=== PATIENT | male | born 1975 | race Two or more races ===

== ENCOUNTER 2016-07-06 12:19 | Observation (INO) | payer MEDICAID, OTHER ==
[~2016-07-06] VITALS: Ht 190.5 cm; Wt 113.4 kg
[2016-07-06] MEDS ORDERED: METF-312 PO (13:06)
[2016-07-06] MEDS ORDERED: LISI-275 PO (13:06)
[2016-07-06] MEDS ORDERED: WARF10TA20 PO (13:06)
[2016-07-06] MEDS ORDERED: CARV6.2551 PO (13:06)
[2016-07-06] MEDS ORDERED: ATOR20TA50 PO (13:06)
[2016-07-06 13:10] LABS: Basophils # (auto) 0 uL; Basophils % (auto) 0.3 % (0.0-2.0); DEFINITIVE VIEW TRANSMISSION; Eosinophils # (auto) 0.1 uL; Eosinophils % (auto) 0.8 % (0.0-7.0); Hematocrit 41.9 % (41.0-53.0); Hemoglobin 13.8 g/dL (13.5-17.5); Lymphocytes # (auto) 1.9 uL; Lymphocytes % (auto) 17.8 % (10.0-50.0); Mean Corpuscular Hemoglobin 26.5 pg (28.0-32.0); Mean Corpuscular Hgb Conc. 32.9 g/dL (32.0-36.0); Mean Corpuscular Volume 80.6 fL (80.0-100.0); Monocytes # (auto) 0.5 uL; Monocytes % (auto) 4.8 % (0.0-12.0); Neutrophils % (auto) 76.3 % (37.0-80.0); Platelet Count (auto) 294 10^3/uL (140-450); Red Cell Distribution Width 15.4 % (11.6-16.0); White Blood Cell 10.5 10^3/uL (4.4-10.8)
[2016-07-06] MEDS ORDERED: SODIUM CHLORIDE 0.9% 1,000 ML IV ONE (13:27)
[2016-07-06] MEDS ORDERED: NALBUPHINE HCL 10 MG/1ml INJECTION IV ONE (13:30)
[2016-07-06] MEDS ORDERED: ONDANSETRON HCL 4 MG/2 ML VIAL IV ONE ×3 (13:30→22:15)
[2016-07-06 13:37] LABS: Albumin 3.8 g/dL (3.4-5.0); Alkaline Phosphatase 59 U/L (45-117); Anion Gap 11 (5-15); Aspartate Aminotransferase 13 U/L (15-37); BUN/Creatinine Ratio 18.3; Bilirubin, Total 0.6 mg/dL (0.2-1.0); Blood Urea Nitrogen 15 mg/dL (7-18); Calcium 8.9 mg/dL (8.5-10.1); Carbon Dioxide 25 mmol/L (21-32); Chloride 107 mmol/L (98-107); GFR African American 133 mL/min; GFR Non-African American 110 mL/min; Glucose 216 mg/dL (74-106); Magnesium 2.1 mg/dL (1.6-2.6); Potassium 4.4 mmol/L (3.5-5.1); Sodium 143 mmol/L (136-145); Total Protein 7.5 g/dL (6.4-8.2)
[2016-07-06 13:58] LABS: Partial Thromboplastin Time 29.5 sec (22.64-33.71)
[2016-07-06 14:00] LABS: INR 1.62 (0.9-1.15); Prothrombin Time 17.5 sec (9.37-12.3)
[2016-07-06] MEDS ORDERED: IOHEXOL 350 MG/ML 100ML IJ ONE (14:54)
[2016-07-06] MEDS ORDERED: ONDANSETRON HCL 4 MG/2 ML VIAL ONE (17:44)
[2016-07-06 22:10] VITALS: BP 120/60
== END 2016-07-06 22:47 | disposition short-term general hospital (02) | DRG 44 ==
LOC: ER 12:19 → OVERFLOW 13:29 → ER 22:47
PROVIDERS: ADMIT Emergency Medicine; ATTEND Emergency Medicine
DX: I60.9 Nontraumatic subarachnoid hemorrhage, unspecified (principal); I67.5 Moyamoya disease; I10 Essential (primary) hypertension; E11.9 Type 2 diabetes mellitus without complications; Z86.718 Personal history of other venous thrombosis and embolism; R11.2 Nausea with vomiting, unspecified
CPT/HCPCS: 36415; 70450; 70496; 71020; 80053; 83735; 84443; 84484; 85025; 85610; 85730; 93005; 96361; 96374; 96375; 96376; 99285; G0378; J2300; J2405; Q9967